=== PATIENT | female | born 1975 | race Caucasian/White ===

== ENCOUNTER 2017-11-23 08:35 | Emergency (ER) | payer OTHER ==
[2017-11-23 08:40] VITALS: BP 126/78; PULSE 71; TEMP 98.1; BMI 28.3
[2017-11-23] MEDS ORDERED: KETOROLAC TROMETHAMINE 60 MG/2 ML VIAL ONE (09:44)
[2017-11-23] MEDS ORDERED: KETOROLAC TROMETHAMINE 30 MG/1 ML VIAL ONE (09:44)
--- NOTE | 2017-11-23 10:08 | PDOC ---
History of Present Illness - General Chief Complaint: Pain, Acute Stated Complaint: LT SHOULDER PAIN Time Seen by Provider: 11/23/17 09:10 History Source: Patient Exam Limitations: No Limitations - History of Present Illness Initial Comments: 11/23/17 09:54 Agent here with complaints of left shoulder pain in the left upper back pain 3- 4 days. 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 Has used ibuprofen and icy hot patches with minimal resolved. Denies numbness or tingling to hand, no fevers, no shortness breath chest pain or palpitations. 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 - Suicide/Smoking/Psychosocial Hx Smoking History: Never smoked Hx Alcohol Use: No Substance Use Type: None Trauma Specific PMHX - Complaint Specific PMHX Back Injury: No Neck Injury: No Review of Systems - Review of Systems Able to Perform ROS?: Yes Is the patient limited Upper Sorbian proficient: Yes Constitutional: Yes: Symptoms Reported, See HPI, Malaise. No: Fever Respiratory: No: Cough Musculoskeletal: Yes: Symptoms Reported, See HPI, Back Pain, Muscle Pain, Muscle Weakness Integumentary: No: Symptoms Reported All Other Systems: Reviewed and Negative *Physical Exam - Vital Signs Last Vital Signs Temp Pulse Resp BP Pulse Ox 98.1 F 71 19 126/78 100 11/23/17 08:37 11/23/17 08:37 11/23/17 08:37 11/23/17 08:37 11/23/17 08:37 - Physical Exam General Appearance: Yes: Nourished, Appropriately Dressed, Apparent Distress HEENT: positive: GONZALEZ, TMs Normal, Pharynx Normal Neck: positive: Supple Respiratory/Chest: positive: Lungs Clear Cardiovascular: positive: Regular Rhythm, Regular Rate Gastrointestinal/Abdominal: positive: Normal Bowel Sounds, Soft Extremity: positive: Normal Capillary Refill, Normal Inspection. negative: Normal Range of Motion (range of motion however able to abduct her arm past 180 but has tenderness reproduced to posterior aspect of shoulder capsule and upper back with tension., Flexion and extension to all fingers and neurovascular intact to hand) Integumentary: positive: Normal Color Neurologic: positive: fisher seal II-XII NML intact, Fully Oriented, Alert, Normal Mood/ Affect, Normal Response, Motor Strength /5 Progress Note - Progress Note Progress Note: Xray negative for fractures or dislocations, we'll treat with NSAIDs, rest, and have follow up with Orth O for further evaluation. *DC/Admit/Observation/Transfer Diagnosis at time of Disposition: Muscle strain of left shoulder Qualifiers: Encounter type: initial encounter Qualified Code(s): S46.912A - Strain of unspecified muscle, fascia and tendon at shoulder and upper arm level, left arm , initial encounter - Discharge Dispostion Disposition: HOME Condition at time of disposition: Stable Admit: No - Prescriptions Prescriptions: Cyclobenzaprine HCl 10 mg PO Q8H PRN #14 tablet PRN Reason: spasm Ibuprofen 400 mg PO Q6H PRN #30 tablet PRN Reason: Pain - Referrals Referrals: Praveen Lyn MD [Primary Care Provider] - Aiden Braden MD [Staff Physician] - - Patient Instructions Printed Discharge Instructions: DI for Cervical Muscle Strain Additional Instructions: Rest, no heavy lifting or exercise until pain is resolved Hot soaks to neck and low back as often as possible/hot showers or Jacuzzis No massage or therapy until spasm is gone Continue ibuprofen 2-200 mg tablets every 6 hours for the next 3 days then as needed for pain and swelling Cyclobenzaprine 1-10mg every 8 hours as needed for spasm If not significant improvement within 24 hours with medication and rest regime, followup with private physician for change in medications and /or therapy. - Post Discharge Activity Forms/Work/School Notes: Back to Work
== END 2017-11-23 10:58 | disposition home or self-care (01) ==
LOC: JERFT 08:35
DX: S46.812A Strain of other muscles, fascia and tendons at shoulder and upper arm level, left arm, initial encounter (principal); X50.0XXA Overexertion from strenuous movement or load, initial encounter; X50.3XXA Overexertion from repetitive movements, initial encounter; Y93.E3 Activity, vacuuming; Y92.89 Other specified places as the place of occurrence of the external cause; Y99.0 Civilian activity done for income or pay
CPT/HCPCS: 73030-TC-LT-FY; 84703; 99281-25

== ENCOUNTER 2018-04-24 15:55 | Emergency (ER) | payer OTHER ==
[2018-04-24 16:14] VITALS: BP 140/70; PULSE 83; TEMP 98; BMI 27.8
--- NOTE | 2018-04-24 16:51 | PDOC ---
History of Present Illness - General Chief Complaint: Vaginal Bleeding Stated Complaint: VAGINAL BLEEDING (10 WKS ) Time Seen by Provider: 04/24/18 16:49 - History of Present Illness Initial Comments: 04/24/18 16:50 42 yo A1, at 10 wga confirmed by TVUS, with no significant pmh who p/w vaginal bleeding and abdominal pain. Patient reports acute onset of vaginal spotting/bleeding today at 3:50pm, with no identifiable triggers. Denies pad or tampon use. Also endorses crampy/sharp spasmodic lower abdominal pain beginning at 3:50 PM with no identifiable triggers or alleviators. No abdominal trauma. Patient denies N/V, F,C, CP, SOB, urinary complaints, diarrhea, constipation, BPR, lightheadedness, weakness, sensory changes. PMHx: as noted above ROS: as noted SHx:Monegasque speaking. Denies Etoh, IVDA, tobacco. Denies h/o STIs. Allergies: NKDA Surgical: x 1 Past History - Past Medical History Allergies/Adverse Reactions: Allergies Allergy/AdvReac Type Severity Reaction Status Date / Time No Known Allergies Allergy Verified 04/24/18 16:14 Home Medications: Ambulatory Orders Cyclobenzaprine HCl 10 mg PO Q8H PRN #14 tablet 11/23/17 Ibuprofen 400 mg PO Q6H PRN #30 tablet 11/23/17 COPD: No - Suicide/Smoking/Psychosocial Hx Smoking History: Never smoked Have you smoked in the past 12 months: No Information on smoking cessation initiated: No Hx Alcohol Use: No Drug/Substance Use Hx: No Substance Use Type: None Review of Systems - Review of Systems Comments:: 04/24/18 16:51 GENERAL/CONSTITUTIONAL: No fever or chills. No weakness. HEAD, EYES, EARS, NOSE AND THROAT: No change in vision. No ear pain or discharge. No sore throat. CARDIOVASCULAR: No chest pain or shortness of breath RESPIRATORY: No cough, wheezing, or hemoptysis. GASTROINTESTINAL:+ Abdominal pain. No nausea, vomiting, diarrhea or constipation. GENITOURINARY: + Vaginal bleeding. No dysuria, frequency, or change in urination. MUSCULOSKELETAL: No joint or muscle swelling or pain. No neck or back pain. SKIN: No rash NEUROLOGIC: No headache, vertigo, loss of consciousness, or change in strength/ sensation. ENDOCRINE: No increased thirst. No abnormal weight change HEMATOLOGIC/LYMPHATIC: No anemia, easy bleeding, or history of blood clots. ALLERGIC/IMMUNOLOGIC: No hives or skin allergy. *Physical Exam - Vital Signs Last Vital Signs Temp Pulse Resp BP Pulse Ox 98.0 F 83 16 140/70 100 04/24/18 16:13 04/24/18 16:13 04/24/18 16:13 04/24/18 16:13 04/24/18 16:13 - Physical Exam Comments: 04/24/18 16:51 GENERAL: Awake, alert, and fully oriented, in no acute distress HEAD: No signs of trauma, normocephalic, atraumatic EYES: PERRLA, EOMI, sclera anicteric, conjunctiva clear ENT: Hearing grossly normal, nares patent, oropharynx clear without exudates. Moist mucosa NECK: Normal ROM, supple, no lymphadenopathy, JVD, or masses LUNGS: No distress, speaks full sentences, clear to auscultation bilaterally HEART: Regular rate and rhythm, normal S1 and S2, no murmurs, rubs or gallops, peripheral pulses normal and equal bilaterally. ABDOMEN: + Lower abdominal ttp. Soft, NDS, normoactive bowel sounds. No guarding, no rebound. No masses. Neg CVA ttp. GENITOURINARY: Nml appearing external genitalia. Blood in vaginal fault and from cervical os. Cervical os closed. Absent adenexal tenderness. Neg CMT on BM exam. EXTREMITIES : Normal inspection, Normal range of motion, no edema. No clubbing or cyanosis. SKIN: Warm, Dry, normal turgor, no rashes or lesions noted ED Treatment Course - LABORATORY CBC & Chemistry Diagram: 04/24/18 18:00 04/24/18 18:00 Medical Decision Making - Medical Decision Making 04/24/18 17:07 42 yo A1, at 10 wga confirmed by TVUS, with no significant pmh who p/w vaginal bleeding and abdominal pain. VSS, AF. + Lower abdominal ttp, and bleeding from cervical os (closed). Will assess for viable IUP, and consider causes of vaginal bleeding and abdominal pain in first trimester including threatened , ectopic , placenta previa, subchorionic hemorrhage. Although low suspicion ddx. also includes cystitis, appendicitis, ovarian torsion. Ed Course: CBC,CMP, T&S, HCG UA TVUS 04/24/18 18:38 CBC,CMP: Unremarkable 04/24/18 19:09 [facility] [place] [id number] 04/24/18 20:31 TVUS: IUP at 6w1d and absent heart tone. Patient stable for d/c with return precautions. Advised to f/u with steamfitter apprentice within 24 hours. *DC/Admit/Observation/Transfer Diagnosis at time of Disposition: First trimester bleeding - Discharge Dispostion Condition at time of disposition: Stable - Referrals Referrals: Kiana Monsivais MD [Staff Physician] - - Patient Instructions Printed Discharge Instructions: DI for Vaginal Bleeding During Additional Instructions: Please return to the emergency department with any new or worsening symptoms or concerns. Please follow up with your Slitter Scorer Cut Off Operator physician within 72 hours. - Post Discharge Activity - Attestations Physician Attestion: 04/24/18 16:51 I attest to the information provided in this note.
[2018-04-24 18:08] LABS: BASO % 0.5 % (0-2.0); EOS % 0.4 % (0-4.5); HEMATOCRIT 39.3 % (32.4-45.2); HEMOGLOBIN 13.4 GM/dL (10.7-15.3); LYMPH % 16.9 % (8-40); MCH 32.5 pg (25.7-33.7); MCHC 34.2 g/dl (32.0-36.0); MEAN PLT VOLUME 8.3 fl (7.5-11.1); MONO % 4.6 % (3.8-10.2); NEUT % 77.6 % (42.8-82.8); PLATELET COUNT 271 K/MM3 (134-434); RBC 4.13 M/mm3 (3.60-5.2); RDW 12.8 % (11.6-15.6); WHITE BLOOD COUNT 9.3 K/mm3 (4.0-10.0)
--- NOTE | 2018-04-24 18:18 | PDOC ---
Attending Attestation - HPI HPI: 04/24/18 18:20 The patient is a 42 year old female A1 who is 10 weeks (confirmed by US) with no significant PMH who presents to the emergency department with vaginal bleeding and abdominal pain beginning approximately 2 hours ago. The patient describes her abdominal pain as an intermittent cramping and sharp sensation localized in the lower abdomen with no radiation and associated vaginal spotting. The patient denies nausea or vomiting. She denies fevers or chills. She denies chest pain or shortness of breath. Allergies: NKA - Physicial Exam PE: 04/24/18 18:21 GENERAL: Awake, alert, and fully oriented, in no acute distress HEAD: No signs of trauma EYES: PERRLA, EOMI, sclera anicteric, conjunctiva clear ENT: Auricles normal inspection, hearing grossly normal, nares patent, oropharynx clear without exudates. Moist mucosa NECK: Normal ROM, supple, no lymphadenopathy, JVD, or masses LUNGS: Breath sounds equal, clear to auscultation bilaterally. No wheezes, and no crackles HEART: Regular rate and rhythm, normal S1 and S2, no murmurs, rubs or gallops ABDOMEN: Soft, nontender, normoactive bowel sounds. No guarding, no rebound. No masses PELVIC: Os closed. Some blood in vault. No clots. No adnexal tenderness. No CMT. EXTREMITIES: Normal range of motion, no edema. No clubbing or cyanosis. No cords, erythema, or tenderness NEUROLOGICAL: Cranial nerves II through XII grossly intact. Normal speech, normal gait SKIN: Warm, Dry, normal turgor, no rashes or lesions noted. <Massimo Wynne - Last Filed: 04/24/18 18:20> - Resident Resident Name: Mario Remy - ED Attending Attestation I have performed the following: I have examined & evaluated the patient, The case was reviewed & discussed with the resident, I agree w/resident's findings & plan, Exceptions are as noted - HPI HPI: 04/24/18 18:18 42 yo female A1 p/w vaginal bleeding and states she is about 10 weeks - Medical Decision Making 04/24/18 19:41 [facility] [id number] 04/24/18 20:23 Ultrasound reveals intrauterine of 6 weeks 1 day. However, there are no heart tones Last menstrual period was 02/11/2018 Patient already has a follow-up appointment at [address] [place] [address] PLAN keep her printing bindery assistant appt this week will take her ultrasound results and lab work when she sees her towboat pilot IMP early iup versus threatened ab <Malinda Jamil - Last Filed: 04/24/18 20:25>
[2018-04-24 18:22] LABS: INR 1.12 (0.82-1.09); PROTHROMBIN TIME (PATIENT) 12.6 SEC (9.7-13.0)
[2018-04-24 18:33] LABS: ALBUMIN 4.1 g/dl (3.4-5.0); ALK PHOS 43 U/L (45-117); ANION GAP 7 (8-16); BILIRUBIN,TOTAL 0.3 mg/dL (0.2-1.0); BLOOD UREA NITROGEN 8 mg/dL (7-18); CHLORIDE 105 mmol/L (98-107); CO2 25 mmol/L (21-32); CREATININE 0.8 mg/dL (0.55-1.02); GLUCOSE,RANDOM 89 mg/dL (74-106); POTASSIUM 3.8 mmol/L (3.5-5.1); SGOT/AST 13 U/L (15-37); SGPT/ALT 19 U/L (12-78); SODIUM 137 mmol/L (136-145); TOT PROT 7.6 g/dl (6.4-8.2)
== END 2018-04-24 20:53 | disposition home or self-care (01) ==
LOC: JER 15:55
DX: O26.891 Other specified pregnancy related conditions, first trimester (principal); O20.8 Other hemorrhage in early pregnancy; Z3A.01 Less than 8 weeks gestation of pregnancy
CPT/HCPCS: 36415; 76817-TC; 80053; 84702; 85025; 85610; 86850; 86900; 86901; 99281-25